=== PATIENT | male | born 1965 | race Two or more races ===

== ENCOUNTER → 2017-10-13 | Outpatient (CLI) | payer BC, OTHER ==
--- NOTE | 2017-10-13 13:57 | MR ---
EXAMINATION TYPE: MR MRCP DATE OF EXAM: 10/13/2017 COMPARISON: Outside CT abdomen and pelvis report from October 09 HISTORY: Jaundice Standard multiplanar, multisequence MRI departmental protocol Multiplanar, multisequence images of the abdomen focusing on biliary system were acquired. Thin and t hick slice MRCP imaging is performed on MRI scanner and reviewed. FINDINGS: LIVER/GB/PANCREAS/BILIARY SYSTEM: Liver is normal in size. No worrisome intrahepatic mass is identifi ed. There is mild to moderate diffuse fat replaced atrophy of the pancreas. Gallbladder has distended margins with 2 larger dependent gallstones seen. There is single 4 mm round low intense lesion suspe cted nondependent gallstone anteriorly. No suspicious surrounding inflammatory change or wall thicken ing is present. There is obstructing 5 mm calculus in the common bile duct seen best coronal image 23 series 2 1 conf irmed on MRCP image 58 approximately 2.0 cm proximal to duodenal ampulla. There is mild extra hepatic biliary dilatation measuring up to 9 mm with minimal to mild central intrahepatic biliary dilatation . Other: Visualized lung bases are clear. The spleen and both adrenal glands are normal in size. There is no concerning renal mass or hydronephrosis seen bilaterally. Normal-appearing appendix from cecum in right lower quadrant is partially imaged. There is no suspicious small or large bowel dilatation. Visualized osseous structures are intact. There is no concerning abdominal fluid collection. There is no suspicious abdominal adenopathy. IMPRESSION: There is 5 mm obstructing calculus in the common bile duct causing mild central intrahepatic and extr ahepatic biliary dilatation. Additional gallstones are noted.
== END | disposition home or self-care (01) ==
LOC: RADMRIMAIN 13:03
PROVIDERS: ATTEND Internal Medicine Gastroenterology
DX: K80.70 Calculus of gallbladder and bile duct without cholecystitis without obstruction (principal)
CPT/HCPCS: 74181